=== PATIENT | female | born 1985 | race Caucasian/White ===

== ENCOUNTER 2016-10-15 00:51 | Inpatient (IN) ==
[2016-10-15] MEDS ORDERED: MORPHINE IV ONE (01:14)
[2016-10-15] MEDS ORDERED: ZOFRAN IV ONE ×3 (01:14→03:59)
[2016-10-15] MEDS ORDERED: NS 1,000 ML IV ONE (01:15)
--- NOTE | 2016-10-15 01:19 | PROVIDER DOCUMENTATION ---
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 Pt reports that the pain came on suddenly when she was eating pasta, approximately 20 minutes before being triaged. On exam, pt does have moderate RUQ tenderness on palpation and R CVA tenderness. Abdominal Pain Onset Location: reports: RUQ Pain Radiation: reports: flank (Pt denies radiation, but she does express pain when palpating R CVA.) Quality of Pain: reports: aching, dull Severity in ED: reports: moderate Onset/Duration: reports: abrupt, 1/2 hour ago Timing: reports: still present Activities at Onset: reports: eating (pasta) Associated Symptoms: reports: vomiting (x2). denies: anxiety, arm pain, back/ neck pain, chest pain, cough, diaphoresis, diarrhea, fatigue, fever/chills, headaches, heartburn, muscle aches, shortness of breath, pain with inspiration, syncope, weakness, trouble walking <Titus Ricci - Last Filed: 10/15/16 02:39> <Eric Alicia - Last Filed: 10/15/16 04:37> - General Chief Complaint: Abdominal Pain Stated Complaint: VOMITING, ABD PAIN Time Seen by Provider: 10/15/16 01:07 Allergies/Adverse Reactions: Patient Allergies Allergy/AdvReac Type Severity Reaction Status Date / Time No Known Allergies Allergy Verified 10/15/16 01:09 Home Medications: Home Medication List Medication Instructions Recorded Confirmed Last Taken Type Nitrofurantoin Monohyd/M-Cryst 100 mg PO BID #20 capsule 10/15/16 Unknown Rx [Macrobid 100 mg Capsule] Review of Systems - Adult - REVIEW OF SYSTEMS - ADULT Constitutional: denies: chills, fever, fatique, night sweats, weight gain, weight loss Eyes: reports: no symptoms reported Ears, Nose, Mouth & Throat: reports: no symptoms reported Cardiovascular: reports: no symptoms reported Respiratory: reports: no symptoms reported Gastrointestinal: reports: abdominal pain (RUQ), nausea, vomiting (x2). denies : hematemesis, constipation, diarrhea, difficulty swallowing, frequent heartburn , poor appetite, rectal bleeding Genitourinary: denies: dysuria, discharge, frequency, flank pain, frequent UTI's , hematuria, hesitency, incontinence, urinary retention, urgency Musculoskeletal: denies: bone pain, back pain, frequent leg cramps, joint pain, joint swelling, muscle aches, muscle weakness, neck pain Integumentary: reports: no symptoms reported Neurological: reports: no symptoms reported Psychiatric: reports: no symptoms reported Endocrine: reports: no symptoms reported Hematologic/Lymphatic: reports: no symptoms reported Allergic/Immunologic: reports: no symptoms reported All Other Systems: Reviewed and Negative <Titus Ricci - Last Filed: 10/15/16 02:39> Past History - Adult - PAST MEDICAL HISTORY-ADULT Review of Records: reports: Nursing Assessment Review, Medications Reviewed - IMMUNIZATION STATUS Childhood Immunizations: See Nurse Assessment Flu Vaccine: See Nurse Assessment <RicciTitus - Last Filed: 10/15/16 02:39> Physical Exam-General - PHYSICAL EXAM-ADULT Initial Vital Signs Reviewed: Yes - CONSTITUTIONAL General Appearance: appears well, alert, moderate distress. negative: no apparent distress, mild distress - RESPIRATORY Respiratory: chest non-tender, lungs clear, normal breath sounds. negative: respiratory distress, decreased breath sounds, accessory muscle use, wheezing - CARDIOVASCULAR Cardiovascular: normal peripheral pulses, regular rate, rhythm. negative: bradycardia, tachycardia, irregularly irregular - GASTROINTESTINAL (ABDOMEN) Abdominal Exam: normal bowel sounds, soft, tenderness (RUQ). negative: non tender, abnormal bowel sounds, McBurney's point tenderness, Light's sign, obturator sign, Rovsing's sign - MUSCULOSKELETAL Back Exam: no vertebral tenderness, CVA tenderness (R). negative: no CVA tenderness, decreased range of motion, swelling, vertebral tenderness - SKIN Integumentary: normal color, normal turgor, warm/dry. negative: abrasion(s), diaphoresis, ecchymosis, erythema, laceration(s), rash, swelling, tenderness, warm - NEUROLOGIC Neurologic: grossly normal, no motor/sensory deficits, negative romberg's sign. negative: facial droop, focal weakness, motor weakness, sensory deficit - PSYCHIATRIC Psych/Mental Status: normal thought content, normal thought process, oriented x 3, anxious, disheveled. negative: normal mood/affect, disoriented x 3, depressed affect, paranoid, tearful <Titus Ricci - Last Filed: 10/15/16 02:39> Progress - CHANGE OF SHIFT REPORT (ED Provider) Report Given and Care Transferred to:: Dr. Alicia Time of Transfer: 01:33 Items Pending: Labs, CT/MRI Results Tentative Impression of Patient: renal stone vs cholelithiasis vs cholcystitis <Khari Pearson - Last Filed: 10/15/16 01:33> - PLAN OF CARE/RESULTS Progress/Plan/Lab Results: Vital Signs - 24 hr 10/15/16 00:54 Temperature 98.3 F Pulse Rate 119 H Respiratory 20 Rate Blood Pressure 125/91 O2 Sat by Pulse 100 Oximetry Orders Category Date Time Status ED: Urine Bedside ORDERED Care 10/15/16 01:14 Active Saline Loc DIRECTED Care 10/15/16 01:13 Active NPO Diet 10/15/16 01:13 Active RENAL STONE SEARCH [CT] Stat Exams 10/15/16 01:14 Taken AMYLASE [CHEM] Stat Lab 10/15/16 01:15 Completed CBC WITH ELECTRONIC DIFF [HEME] Stat Lab 10/15/16 01:15 Completed COMPREHENSIVE METABOLIC PANEL [CHEM] Stat Lab 10/15/16 01:15 Completed LIPASE [CHEM] Stat Lab 10/15/16 01:15 Completed URINALYSIS W/POSS RFLX CULT [URINALYSIS] Stat Lab 10/15/16 01:20 Completed URINE CULTURE [RM] Routine Lab 10/15/16 01:49 Received 0.9% Sodium Chloride Inj [Ns] 1,000 ml Med 10/15/16 01:15 Discontinued IV 999 mls/hr Morphine Med 10/15/16 01:14 Discontinued 2 mg IV NOW ONE Ondansetron [Zofran] Med 10/15/16 01:14 Discontinued 4 mg IV NOW ONE Laboratory Tests 10/15/16 10/15/16 10/15/16 01:15 01:15 01:20 WBC 10.72 RBC 4.42 Hgb 13.3 Hct 38.3 MCV 86.7 MCH 30.1 MCHC 34.7 RDW Std Deviation 12.1 Plt Count 222 MPV 10.7 H Immature Gran % (Auto) 0.2 Neut % (Auto) 59.5 Lymph % (Auto) 26.8 [place] % (Auto) 10.8 H Eos % (Auto) 2.1 Baso % (Auto) 0.6 Immature Gran # (Auto) 0.02 Neut # (Auto) 6.39 Lymph # (Auto) 2.87 [place] # (Auto) 1.16 H Eos # (Auto) 0.22 Baso # (Auto) 0.06 Sodium 138 Potassium 3.6 Chloride 104 Carbon Dioxide 21 L Anion Gap 13 BUN 11 Creatinine 0.7 Estimated GFR/1.73 m2 > 60 BUN/Creatinine Ratio 16 Glucose 97 Calculated Osmolality 275 Calcium 9.1 Total Bilirubin 0.27 AST 15 ALT 12 Alkaline Phosphatase 40 Total Protein 7.2 Albumin 4.4 Globulin 2.8 Albumin/Globulin Ratio 1.6 Amylase 57 Lipase 40 Urine Source CLEAN CATCH Urine Color YELLOW Urine Turbidity HAZY Urine pH 5.0 Ur Specific [place] 1.011 Urine Protein NEGATIVE Ur Glucose (Stick) NEGATIVE Ur Ketones (Stick) NEGATIVE Urine Blood NEGATIVE Urine Nitrite NEGATIVE Urine Bilirubin NEGATIVE Urobilinogen Dipstick NORMAL Urine Leukocytes MODERATE A Urine WBC (Auto) 10-20 A Urine RBC (Auto) <10 U Epithel Cells (Auto) <10 Urine Bacteria (Auto) 1+ - REASSESSMENT Reassessment #1 Time Reassessed: 02:39 Status: other (Pt reports that she is still having severe R flank pain. Dr. Alicia paged Dr. Brush.) - ULTRASOUND (By Radiology) 1 US Study: Renal Impression: See EMR Report US Results: Normal - CHANGE OF SHIFT REPORT (ED Provider) Report Given and Care Transferred to:: Dr. Alicia Time of Transfer: 01:51 Items Pending: Labs, CT/MRI Results <Titus Ricci - Last Filed: 10/15/16 02:39> Departure <Khari Pearson - Last Filed: 10/15/16 01:33> - Departure Time of Disposition Order: 02:17 Certified Medical Emergency: Emergent <Titus Ricci - Last Filed: 10/15/16 02:39> - Departure Time of Disposition Order: 04:00 Certified Medical Emergency: Emergent <Eric Alicia - Last Filed: 10/15/16 04:37> - Departure DIAGNOSIS: UTI (urinary tract infection) Qualifiers: Urinary tract infection type: site unspecified Hematuria presence: without hematuria Qualified Code(s): N39.0 - Urinary tract infection, site not specified Abdominal pain Qualifiers: Abdominal location: right upper quadrant Qualified Code(s): R10.11 - Right upper quadrant pain Disposition: ADMITTED INPATIENT 09 Condition: Stable Additional Instructions: ED Follow Up Instructions: You have been treated by a care provider in the Emergency Department. These instructions are being provided to you so you can have an understanding of how to care for yourself upon discharge. Upon discharge from the Emergency Department, you are responsible for making arrangements for follow-up care by a physician of your choice. Take all prescribed medications as directed. Return to the Emergency Department immediately for any new or worsening symptoms. You may call the Physician Referral phone number at [phone] to obtain a list of Physicians who are taking new patients. Prescriptions: Nitrofurantoin Monohyd/M-Cryst [Macrobid 100 mg Capsule] 100 mg PO BID #20 capsule Referrals: Kalin Sneed MD [Primary Care Provider] - Forms: Return to School/Parent Work Instructions: Urinary Tract Infection, [id number], Abdominal Pain, Adult, [id number] Attestation - Scribe Verification/Attestation Scribe:: Titus Ricci Acting as Scribe for:: Khari Pearson Scribe documention review:: This chart was documented by a scribe and accurately reflects the service the provider performed and the decisions made by the provider. - Scribe Verification/Attestation #2 Shift Change Time: 02:00 Scribe Name: Titus Ricci Acting as Scribe for:: Eric Alicia <Titus Ricci - Last Filed: 10/15/16 02:39> Physician Attestation
[2016-10-15 01:20] LABS: MANUAL DIFF NEEDED? NO
[2016-10-15 01:26] LABS: BASO% 0.6 % (0.0-0.8); EOS# 0.22 X1000 (0.0-0.7); EOS% 2.1 % (0.0-10.0); HEMATOCRIT 38.3 % (37.0-47.0); HEMOGLOBIN 13.3 g/dL (12.0-16.0); IMM GRAN# 0.02 X1000 (0.0-0.04); IMM GRAN% 0.2 % (0.0-0.5); LYMPH# 2.87 X1000 (1.2-3.4); LYMPH% 26.8 % (20.5-51.1); MCH 30.1 PG (27-31); MCHC 34.7 g/dL (33-37); MCV 86.7 FL (81-99); MONO# 1.16 X1000 (0.11-0.59); MONO% 10.8 % (1.7-9.3); MPV 10.7 FL (7.4-10.4); NEUT% 59.5 % (42.2-75.2); PLT 222 X1000 (130-400); RBC 4.42 XMIL (4.2-5.4)
[2016-10-15 01:30] LABS: URINE SOURCE CLEAN CATCH
[2016-10-15 01:31] LABS: URINE MICRO REVIEW NEEDED? NO
[2016-10-15 01:34] LABS: BILIRUBIN URINE NEGATIVE (NEGATIVE); BLOOD URINE NEGATIVE (NEGATIVE); COLOR YELLOW; GLUCOSE URINE NEGATIVE (NEGATIVE); LEUKOCYTES URINE MODERATE (NEGATIVE); NITRITE URINE NEGATIVE (NEGATIVE); PROTEIN URINE NEGATIVE (NEGATIVE); SP GRAVITY URINE 1.011; TURBIDITY URINE HAZY (CLEAR); UROBILINOGEN URINE NORMAL (NORMAL)
[2016-10-15 01:35] LABS: UR EPITHELIAL CELLS <10 /HPF (<10); URINE BACTERIA 1+ /HPF; URINE CULTURE NEEDED? YES; URINE RBC <10 /HPF (<10)
[2016-10-15 01:40] LABS: AGAP 13; ALBUMIN 4.4 g/dL (3.5-5.0); ALKALINE PHOSPHATASE 40 U/L (32-104); AMYLASE 57 U/L (20-200); BUN 11 mg/dL (8-22); CALCIUM 9.1 mg/dL (8.8-10.2); CHLORIDE 104 mmol/L (98-107); COSMO 275; GOT 15 U/L (10-30); GPT 12 U/L (10-36); LIPASE 40 U/L (13-60); POTASSIUM 3.6 mmol/L (3.5-5.1); SODIUM 138 mmol/L (136-145); TCO2 21 mmol/L (25-35); TOTAL BILIRUBIN 0.27 mg/dL (0.20-1.00); TOTAL PROTEIN 7.2 g/dL (6.3-8.3)
[2016-10-15] MEDS ORDERED: TORADOL IV ONE (03:16)
[2016-10-15] MEDS ORDERED: NORFLEX IV ONE (03:16)
[2016-10-15] MEDS ORDERED: DILAUDID IV ONE (03:37)
[2016-10-15] MEDS ORDERED: ZOFRAN ONE (04:00)
[2016-10-15] MEDS: ROCEPHIN 1 GM/NS 50 ML IV SCH (04:12)
[2016-10-15] MEDS ORDERED: PROTONIX IV SCH (04:17)
[2016-10-15] MEDS ORDERED: PHENERGAN IV PRN (04:17)
[2016-10-15] MEDS ORDERED: SODIUM CHLORIDE 0.9% INJ PRN (04:17)
[2016-10-15] MEDS ORDERED: MORPHINE IV PRN (04:17)
[2016-10-15] MEDS ORDERED: ZOFRAN IV PRN (04:17)
[2016-10-15] MEDS ORDERED: SODIUM CHLORIDE 0.9% INJ SCH (04:17)
[2016-10-15] MEDS: PROTONIX IV SCH ×2 (05:04→18:02)
--- NOTE | 2016-10-15 05:24 | HISTORY AND PHYSICAL ---
PRIMARY CARE PROVIDER: Dr. Sneed. CHIEF COMPLAINT: Nausea, vomiting, blood in emesis, right flank pain. 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 She stated that tonight around 12:30, she had a few bites of pasta from [employer]. She stated that she had not been feeling well and she had some mild dizziness at home before leaving for work. At any rate, around 2 hours after eating some food, she began having vomiting. She stated that there was ramirez red bleeding noted in the emesis but more impressively was the 10/10 right flank pain. She was carried down to the emergency room where she reported right upper quadrant pain that radiated to her back, right lower quadrant pain with rebound tenderness on examination, pain just below the umbilicus, as well as nausea. A renal stone search was completed in the emergency room which did not show any renal stones. Laboratory data was within normal limits. Urine showed moderate leukocytes, 10-20 WBCs, and 1+ bacteria. She will be admitted to the medical floor for intractable pain. PAST MEDICAL HISTORY: None. PAST SURGICAL HISTORY: Denies. SOCIAL HISTORY: Lives at home with her boyfriend. Denies tobacco, alcohol, or illicit drug use or abuse. FAMILY HISTORY: Denies any significant family history. HOME MEDICATIONS: None. ALLERGIES: No known drug allergies. REVIEW OF SYSTEMS: Fourteen point review of systems conducted with the patient. All negative except for listed above in the HPI. PHYSICAL EXAMINATION: VITAL SIGNS: Temperature 98.3 degrees, pulse 119, respirations 20, blood pressure 125/91, oxygen saturation 100% on room air. GENERAL: Very pleasant, 31-year-old female who is in moderate distress related to pain. Answers all questions appropriately. HEENT: Head is atraumatic, normocephalic. Pupils equal, round, and reactive to light. Extraocular eye movement intact. Sclerae are anicteric. Conjunctivae are not pale. Oral mucosa is moist. NECK: Supple. No JVD. No thyromegaly. Trachea is midline. CARDIAC: Regular rhythm. S1, S2 appreciated. No murmurs, gallops, rubs. Sinus tachycardia. LUNGS: Clear to auscultation bilaterally. No rhonchi, wheezes, or rales. ABDOMEN: Soft. Nondistended. Positive Light's sign in right upper quadrant. Positive right lower quadrant pain with rebound tenderness. The patient is nonrigid. No guarding noted. Also, pain was noted just below the umbilicus. Bowel sounds present in all 4 quadrants, normoactive. No pulsatile mass. No organomegaly could be palpated. BACK: Right-sided CVA tenderness. No vertebral tenderness. EXTREMITIES: No clubbing, cyanosis, or edema. There are 2+ pedal pulses. GENITOURINARY: The patient voids, otherwise deferred. NEUROLOGICAL: Alert and oriented x3. Otherwise nonfocal examination. DIAGNOSTIC DATA: Renal stone search NAD. Laboratory data within normal limits. CT scan of the abdomen and pelvis with IV and oral contrast is pending. Urine showed moderate leukocytes, 10-20 WBCs, 1+ bacteria. ASSESSMENT: 1. Intractable right-sided abdominal pain. Differentials include retrocecal appendicitis and cholecystitis. 2. Intractable nausea and vomiting. 3. Upper gastrointestinal bleed. 4. Urinary tract infection. PLAN: Admit patient. Consult Dr. Jones related to upper GI bleeding. CT of the abdomen and pelvis is pending with oral and IV contrast. Hold patient NPO. Morphine 2 mg IV q.3 hours as needed for pain. The patient received Toradol, morphine, and Norflex in the emergency room, and continued to have intractable pain. We will alternate Zofran and Phenergan IV as needed for nausea. Protonix 40 mg IV q.12 hours. Further recommendations per patient's clinical course. Dictated by DOMINICK Rico for Davis Brush MD
--- NOTE | 2016-10-15 07:53 | Diag Imaging Result Document ---
PROCEDURE NAME: US GB < RUQ (LIMITED) - 10/15/2016 RIGHT UPPER QUADRANT ULTRASOUND: FINDINGS: The pancreas is unremarkable in appearance. The aorta and inferior vena cava are within normal limits. There is antegrade flow in the portal vein. The right kidney is without evidence of hydronephrosis or mass. There is no evidence of biliary dilatation, the common bile duct measuring less than 5 mm in diameter. The aorta and inferior vena cava are normal in appearance where they are visible. The gallbladder is clear and nontender. The liver is otherwise unremarkable. The right kidney is without evidence of hydronephrosis or mass. IMPRESSION: No evidence of acute disease.
--- NOTE | 2016-10-15 10:16 | Diag Imaging Result Document ---
PROCEDURE NAME: RENAL STONE SEARCH - 10/15/2016 CT ABDOMEN AND PELVIS WITHOUT CONTRAST: COMPARISON: None available. FINDINGS: No renal or ureteral stones are appreciated and there is no hydronephrosis. The urinary bladder is grossly unremarkable. The appendix appears normal. There is no evidence of bowel obstruction. There are probably bilateral small adnexal cysts. There is trace fluid layering in the pelvis, usually physiologic. No focal inflammatory change or free abdominal gas is identified. The remainder of the solid viscera of the abdomen and pelvis and the remainder of the GI tract is essentially unremarkable. IMPRESSION: 1. No renal or ureteral stones identified and no evidence of obstructive uropathy. 2. Other incidental/nonacute findings detailed above but no definite acute pathology by unenhanced CT.
--- NOTE | 2016-10-15 10:24 | Diag Imaging Result Document ---
PROCEDURE NAME: ABDOMEN/PELVIS W/CONTRAST - 10/15/2016 CT ABDOMEN AND PELVIS WITH IV AND ORAL CONTRAST: COMPARISON: CT abdomen and pelvis without contrast performed only a few hours prior. FINDINGS: With addition of IV contrast, very minimal intrahepatic biliary dilatation is evident of uncertain etiology or clinical significance. The gallbladder is unremarkable. There is no evidence of extrahepatic biliary dilatation. A miniscule low-dense focus is identified in the left hepatic lobe measuring up to 5 mm. This is nonspecific but likely represents a tiny cyst. The appendix is normal. With the addition of IV contrast, a couple left ovarian cysts are now evident. The largest cyst is thick walled and has a convoluted border, probably a luteal cyst. It measures up to 2.4 cm in the greatest dimension. There is a smaller simple cyst associated with the left ovary measuring up to 1.8 cm. There is trace free fluid layering in the pelvis, usually physiologic. No other definite adnexal mass can be identified. There is no evidence of bowel obstruction. The kidneys are unremarkable. The remainder of the solid viscera of the abdomen and pelvis and the remainder of the GI tract is essentially unremarkable and stable as compared to the previous recent study. IMPRESSION: 1. A couple left ovarian lesions that probably represent cysts with one having a somewhat thickened wall, most likely a luteal cyst. 2. Very mildly prominent intrahepatic bile ducts of uncertain etiology or significance. 3. Trace pelvic free fluid, which is usually physiologic. 4. No definite acute pathology, otherwise.
[2016-10-15] MEDS: NS 1,000 ML IV SCH ×2 (13:46→21:23)
[2016-10-15 14:33] LABS: HEMATOCRIT 36.1 % (37.0-47.0); HEMOGLOBIN 11.9 g/dL (12.0-16.0)
[2016-10-15] MEDS ORDERED: MYLICON DROPS (DOSE) MISC ONE (16:58)
[2016-10-15] MEDS ORDERED: DIPRIVAN 1% ONE (17:30)
[2016-10-15] MEDS ORDERED: VERSED ONE (17:30)
--- NOTE | 2016-10-15 19:28 | OPERATIVE NOTE ---
PROCEDURE DATE: 10/15/2016 PROCEDURE PERFORMED: Esophagogastroduodenoscopy with control of bleeding. REFERRING PHYSICIAN: Kalin Sneed MD INDICATIONS FOR PROCEDURE: 1. Nausea with vomiting. 2. Hematemesis. 3. Epigastric pain. 4. Right upper quadrant pain. PROCEDURE PERFORMED: Esophagogastroduodenoscopy with control of bleeding. CONSENT: Informed consent was obtained from the patient prior to the procedure. The risks, benefits, and alternatives were discussed. MEDICATION: The patient received monitored anesthesia care. PERFORMING PHYSICIAN: Padmaja Jones MD. ASSISTANTS: 1. ST. José Miguel 2. Elie Adams RN. 3. Robert Cuellar CRNA. 4. Jayce Louie MD (Anesthesia). COMPLICATIONS: There were no complications. ESTIMATED BLOOD LOSS: 2-3 mL. SPECIMENS REMOVED: None. FINDINGS: After sedation was achieved, the upper endoscope was inserted to the 2nd portion of the duodenum. The hypopharynx appeared endoscopically normal. The tubular esophagus appeared normal to 35 cm. It should be noted that there was bile staining in the mid and lower esophagus. At the GE junction, there were multiple superficial erosions and a small rent in the gastric mucosa, suggestive of a Emmy-Maldonado tear. It was nonbleeding at the time of insertion. The GE junction was measured at 35 cm from the incisors. There was a hiatal hernia that spanned from 35-40. In the gastric lumen, there was greater than 200 mL of bilious secretions in the stomach. There was mild erosive gastritis. On retroflexed view, the mild tear in the distal esophagus on the gastric surface was again visualized, suggestive of a Emmy-Maldonado tear. On forward view, the pylorus was patent with a moderate amount of bile reflux into the gastric lumen. In the duodenal bulb, there was a copious amount of bile retained in the bulb. The ampulla of Vater was visualized and there was free flowing bile from the ampulla of Vater. Upon withdrawing the scope, there was active bleeding in the distal esophagus at the level of the Emmy-Maldonado tear. Black wire cautery was used to achieve hemostasis. The area was rinsed and watched for approximately 2 minutes. The scope was then removed without incident. IMPRESSION: 1. Actively bleeding Emmy-Maldonado tear. 2. Grade B erosive esophagitis. 3. Hiatal hernia. 4. Retained bilious secretions in the gastric lumen. 5. Mild erosive gastritis. 6. Active bile reflux from the duodenum. 7. Otherwise normal duodenum. RECOMMENDATIONS: 1. Continue Protonix 40 mg IV q.12 hours. 2. Add Carafate suspension 1 g p.o. 4 times a day for 12 weeks. Please note that she may be transitioned to pills upon hospital discharge. 3. Please check a serum test as the patient had nausea with vomiting during the procedure. 4. Because of the acute onset of right upper quadrant pain, I would check a HIDA scan in the morning as long as the test is negative. 5. Consider an outpatient gastric emptying study as she had retained gastric secretions upon insertion of the scope. 6. Additional recommendations to follow based on her clinical course.
[2016-10-15 20:23] LABS: HEMATOCRIT 31.3 % (37.0-47.0); HEMOGLOBIN 10.5 g/dL (12.0-16.0)
[2016-10-15] MEDS: CARAFATE LIQUID PO SCH (21:23)
--- NOTE | 2016-10-15 22:16 | CONSULTATION ---
DATE OF CONSULTATION: 10/15/2016 REFERRING PHYSICIAN: Kalin Sneed MD INDICATION FOR CONSULTATION: Hematemesis. 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 On her way to work she felt dizzy and lightheaded as if her blood sugar were low. At work she ate a from [employer]. After a few bites she developed severe 10/10 right upper quadrant pain that radiated into her right flank and epigastric discomfort. She continued to eat dinner but became progressively nauseated over the next few hours. She had an episode of emesis followed by an episode of hematemesis. She went home but returned to the emergency room as she continued to have nausea. We are asked to perform endoscopic evaluation as the patient had a 2 g drop in hemoglobin. PAST MEDICAL HISTORY: None. PAST SURGICAL HISTORY: None. FAMILY HISTORY: Noncontributory. SOCIAL HISTORY: The patient is single but lives with her boyfriend. She is engaged to be . She is an RN. Her fiance has 4 children at home who she helps to care for. Her history is negative for alcohol, tobacco or recreational drug use. MEDICATIONS: She is on no current medications. REVIEW OF SYSTEMS: Remarkable in that the right upper quadrant pain has resolved but the epigastric pain persists. She reports mild nausea. PHYSICAL EXAM: General: She is in no acute distress. Vital signs: Her blood pressure is 125/75, pulse 70, respirations 12, temperature of 98.2 degrees. HEENT: Negative for jaundice. Her sclerae are anicteric. Conjunctiva are pale. Her oropharyngeal mucosal membranes slightly dry. Cardiac Exam: She has regular rate and rhythm with no murmurs, gallops, or rubs. Pulmonary: Lungs are clear to auscultation with normal expiratory effort. Abdominal Exam: She has normoactive bowel sounds. The abdomen is soft with mild epigastric tenderness. There is no right upper quadrant tenderness, rebound or guarding. Neurologic Exam: She is alert and oriented x3 with the appropriate mood, affect and memory. Musculoskeletal Exam: Negative for cyanosis, clubbing or edema. Skin: Inspection of the skin is remarkable for body piercing. IMPRESSION: 1. Nausea with vomiting. 2. Hematemesis. 3. Epigastric pain. 4. Right upper quadrant pain. RECOMMENDATION: 1. Will plan to perform an EGD today. 2. Continue Protonix 40 mg IV q.12 hours. 3. I recommend a HIDA scan tomorrow to assess the right upper quadrant pain. 4. Additional recommendations to follow based on her endoscopic findings.
[2016-10-16 00:49] LABS: HEMOGLOBIN 10.1 g/dL (12.0-16.0)
[2016-10-16] MEDS: CARAFATE LIQUID PO SCH ×3 (01:21→17:16)
[2016-10-16] MEDS: ROCEPHIN 1 GM/NS 50 ML IV SCH (03:30)
[2016-10-16] MEDS: PROTONIX IV SCH ×2 (03:30→17:17)
[2016-10-16 05:07] LABS: MANUAL DIFF NEEDED? NO
[2016-10-16 05:10] LABS: BASO% 0.4 % (0.0-0.8); EOS% 2.4 % (0.0-10.0); HEMATOCRIT 29.9 % (37.0-47.0); HEMOGLOBIN 10.1 g/dL (12.0-16.0); LYMPH# 1.94 X1000 (1.2-3.4); MCH 29.9 PG (27-31); MCHC 33.8 g/dL (33-37); MCV 88.5 FL (81-99); MONO# 0.85 X1000 (0.11-0.59); MONO% 10.1 % (1.7-9.3); MPV 10.8 FL (7.4-10.4); NEUT% 64.1 % (42.2-75.2); PLT 138 X1000 (130-400); RBC 3.38 XMIL (4.2-5.4)
[2016-10-16 05:33] LABS: AGAP 12; ALBUMIN 3.2 g/dL (3.5-5.0); ALKALINE PHOSPHATASE 29 U/L (32-104); BUN 6 mg/dL (8-22); CALCIUM 7.9 mg/dL (8.8-10.2); CHLORIDE 108 mmol/L (98-107); COSMO 277; GOT 11 U/L (10-30); GPT 9 U/L (10-36); POTASSIUM 3.9 mmol/L (3.5-5.1); SODIUM 140 mmol/L (136-145); TCO2 20 mmol/L (25-35); TOTAL BILIRUBIN 0.65 mg/dL (0.20-1.00); TOTAL PROTEIN 5.3 g/dL (6.3-8.3)
[2016-10-16] MEDS ORDERED: XYLOCAINE-MPF 2% ONE (08:06)
--- NOTE | 2016-10-16 08:31 | PROGRESS NOTE ---
DATE: 10/16/2016 SUBJECTIVE: Ms. Cutler was admitted with abdominal pain, nausea, vomiting. The patient did have blood in the stool. The pain was moderate in intensity. The patient underwent EGD and found to have a Emmy-Maldonado tear requiring cauterization. The patient was also found to have a UTI. She is on antibiotics. 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 Patient had loose bowel movement which was a black color, most likely due to old blood. No high-grade fever or chills. Mild nausea. No vomiting. Admission history, physical, and GI consult noted. PHYSICAL EXAMINATION: Vital Signs: Her vital signs reviewed. Neck: Supple. No JVD. Lungs: Bilateral good air entry present. CVS: S1 and S2 heard. Abdomen: Soft. No distention. Mild epigastric tenderness. No guarding or rigidity. Extremities: No cyanosis, clubbing. No acute DVT. MINING SPECULATOR: Alert, awake. Able to move all 4 limbs. CONSIDERATION: 1. Upper gastrointestinal bleed, most likely due to Emmy-Maldonado tear. The patient also had a hiatal hernia, erosive esophagitis, gastritis. The patient is scheduled to have HIDA scan. 2. Her other problems include ovarian cyst, urinary tract infection. We will continue current treatment, close observation. Manager Category following patient with us. LABORATORY DATA: Done today, hemoglobin 10.1, hematocrit 29.9, WBC count 8.44, platelets 138,000. Electrolytes fairly benign. PLAN: Overall plan discussed with the patient. She is in agreement.
[2016-10-16] MEDS: NS 1,000 ML IV SCH (10:04)
[2016-10-16 11:23] VITALS: BP 121/72
--- NOTE | 2016-10-16 13:22 | Diag Imaging Result Document ---
PROCEDURE NAME: HIDA SCAN W/ EJECTION FRACTION - 10/16/2016 NUCLEAR MEDICINE HIDA SCAN WITH EJECTION FRACTION: FINDINGS: 5.9 mCi of Choletec were given. There is prompt uptake of radiopharmaceutical within the liver. There is normal filling of the gallbladder with emptying into the small bowel. Ensure was taken to determine the gallbladder ejection fraction. This is calculated to be only 23% at 60 minutes. This falls below the normal range. IMPRESSION: Abnormal exam with a below normal gallbladder ejection fraction.
== END 2016-10-16 20:40 | disposition home or self-care (01) | DRG 369 ==
LOC: SUATTDRO 00:51 → ED 00:51 → EDIPHOLD 10:18 → 3S 12:54 → 3N 10-16 10:11
PROVIDERS: ADMIT Internal Medicine; ATTEND Internal Medicine
PROC: 0W3P8ZZ Control Bleeding in Gastrointestinal Tract, Via Natural or Artificial Opening Endoscopic (ICD-10-PCS; principal; 2016-10-15 16:25)
DX: K22.6 Gastro-esophageal laceration-hemorrhage syndrome (principal); N39.0 Urinary tract infection, site not specified; K44.9 Diaphragmatic hernia without obstruction or gangrene; K20.9 Esophagitis, unspecified; K29.71 Gastritis, unspecified, with bleeding; N83.209 Unspecified ovarian cyst, unspecified side; K29.70 Gastritis, unspecified, without bleeding
CPT/HCPCS: 74176; 74177; 76705; 78227; 80053; 81001; 81025; 82150; 83690; 84443; 84703; 85014; 85018; 85025; 87077; 87088; 96365; 96375; 96376; A9537; C9113; J0696; J1170; J1885; J2250; J2270; J2360; J2405; J2550; J7030; Q9967; S0164